=== PATIENT | male | born 1950 | race African-American/Black ===

== ENCOUNTER → 2018-09-13 | Outpatient (CLI) | payer OTHER, BC | LOC: CAT 10:47 | DX: J84.10 Pulmonary fibrosis, unspecified (principal); J98.4 Other disorders of lung; I25.10 Atherosclerotic heart disease of native coronary artery without angina pectoris; R91.8 Other nonspecific abnormal finding of lung field ==

== ENCOUNTER → 2021-01-15 | Outpatient (CLI) | payer OTHER, BC | LOC: SJCVC 12:56 | PROVIDERS: ATTEND Nuclear Medicine Nuclear Cardiology | DX: I77.9 Disorder of arteries and arterioles, unspecified (principal); I73.9 Peripheral vascular disease, unspecified; I10 Essential (primary) hypertension; I25.10 Atherosclerotic heart disease of native coronary artery without angina pectoris; G47.33 Obstructive sleep apnea (adult) (pediatric); F17.210 Nicotine dependence, cigarettes, uncomplicated; Z79.82 Long term (current) use of aspirin; Z79.899 Other long term (current) drug therapy ==